=== PATIENT | male | born 1970 ===

== ENCOUNTER 2018-05-15 16:37 | Emergency (ER) | payer MEDICAID, OTHER ==
[2018-05-15 16:55] VITALS: RESP 18; TEMP 98.3
[2018-05-15] MEDS ORDERED: Naproxen 500 MG TAB PO STA (17:07)
--- NOTE | 2018-05-15 17:11 | ED PDOC ---
HPI: Head Injury Time Seen by Provider: 05/15/18 17:08 Chief Complaint (Nursing): Headache Chief Complaint (Provider): head injury/jaw injury History Per: Patient (47 y/o male here with facial/head injury that occurred 2 weeks ago when he fell out of bed and hit face along brick wall. Was disoriented after injury but states no LOC/altered mentation noted. Patient has h/o cervical fusion and has been taking advil intermittently for pain. Patient notes persistent symptoms and is here to evaluate for fx/head injury.) Past Medical History Reviewed: Historical Data, Nursing Documentation, Vital Signs Vital Signs: Last Vital Signs Temp 98.3 F 05/15/18 16:51 Pulse 106 H 05/15/18 16:51 Resp 18 05/15/18 16:51 BP 146/79 05/15/18 16:51 Pulse Ox 97 05/15/18 16:51 - Medical History PMH: Asthma - Surgical History Surgical History: Tonsillectomy - Family History Family History: States: Unknown Family Hx - Home Medications Home Medications: Ambulatory Orders Medication Instructions Recorded Azithromycin [Zithromax Z-Patricio] 250 mg PO DAILY #1 packet 10/31/14 Prednisone 50 mg PO DAILY #5 tab 10/31/14 guaiFENesin/Codeine [Robitussin 5 ml PO Q4H PRN #240 ml 10/31/14 w/Codeine] Methylprednisolone [Medrol Dose 4 mg PO DAILY #21 mg 08/04/16 Pack (21 tabs)] Promethazine HCl/Codeine 5 ml PO HS #80 ml 08/04/16 [Prometh-Codein 6.25-10 mg/5 ml] Naproxen 1 tab PO Q12 PRN #14 tab 05/15/18 - Allergies Allergies/Adverse Reactions: Allergies Allergy/AdvReac Type Severity Reaction Status Date / Time No Known Allergies Allergy Verified 08/04/16 14:22 Review of Systems ROS Statement: Except As Marked, All Systems Reviewed And Found Negative Neurological: Positive for: Other (head injury) Physical Exam - Reviewed Nursing Documentation Reviewed: Yes Vital Signs Reviewed: Yes - Physical Exam Appears: Positive for: Well, Non-toxic, No Acute Distress Head Exam: Positive for: ATRAUMATIC (no obvious abrasion noted. tender superior aspect of head. ), NORMAL INSPECTION, NORMOCEPHALIC Skin: Positive for: Normal Color, Warm, DRY Eye Exam: Positive for: EOMI, Normal appearance, PERRL ENT: Positive for: Normal ENT Inspection (tender opening and close jaw) Neck: Positive for: Normal, Painless ROM Cardiovascular/Chest: Positive for: Regular Rate, Rhythm Respiratory: Positive for: CNT, Normal Breath Sounds Gastrointestinal/Abdominal: Positive for: Normal Exam, Soft Back: Positive for: Normal Inspection Extremity: Positive for: Normal ROM Neurologic/Psych: Positive for: Alert, Oriented - ECG O2 Sat by Pulse Oximetry: 97 - Progress ED Course And Treament: CT C SPINE: IMPRESSION: Fragmentation of the tip of the dens without surrounding edema, hemorrhage or widening of the predental space. Sclerotic appearance of the body of the dens and anterior arch of C1. These findings suggest chronicity. If there is clinical concern for acute fracture, MRI can be obtained for further evaluation. CT HEAD: NAD CT ORBITAL-FACIAL NO FX NAPROXEN 500MG X 1 DOSE MORPHINE 4 MG IM X 1 DOSE PATIENT RE-EXAMINED WITH NO POINT TENDERNESS BY NECK. PAIN MOSTLY ON RIGHT JAW. Disposition - Clinical Impression Clinical Impression: Head injury, Dens fracture - Patient ED Disposition Is Patient to be Admitted: No - Disposition Referrals: Ozzie Petit MD [Staff Provider] - Disposition: Routine/Home Disposition Time: 18:39 Condition: FAIR Prescriptions: Naproxen 1 tab PO Q12 PRN #14 tab PRN Reason: Pain, Moderate (4-7) Instructions: Neck Fracture, Closed Head Injury (DC) Forms: [facility] ED School/Work Excuse
[2018-05-15] MEDS ORDERED: Naproxen 500 MG TAB PO ONE (17:20)
--- NOTE | 2018-05-15 17:46 | CT ---
Date of service: 05/15/2018 PROCEDURE: CT HEAD WITHOUT CONTRAST. HISTORY: head injury/headache COMPARISON: None available. TECHNIQUE: Axial computed tomography images were obtained through the head/brain without intravenous contrast. Radiation dose: Total exam DLP = 856.5 mGy-cm. This CT exam was performed using one or more of the following dose reduction techniques: Automated exposure control, adjustment of the mA and/or kV according to patient size, and/or use of iterative reconstruction technique. FINDINGS: HEMORRHAGE: No intracranial hemorrhage. BRAIN: No mass effect or edema. No atrophy or chronic microvascular ischemic changes. VENTRICLES: Unremarkable. No hydrocephalus. CALVARIUM: Unremarkable. PARANASAL SINUSES: Unremarkable as visualized. No significant inflammatory changes. MASTOID AIR CELLS: Unremarkable as visualized. No inflammatory changes. OTHER FINDINGS: None. IMPRESSION: No acute intracranial pathology.
--- NOTE | 2018-05-15 18:02 | CT ---
Date of service: 05/15/2018 PROCEDURE: CT MAXILLOFACIAL BONES WITHOUT CONTRAST HISTORY: r/o fx COMPARISON: None available. TECHNIQUE: Contiguous axial CT images of the maxillofacial bones were obtained. Coronal and sagittal reformats were generated. Radiation dose: Total exam DLP = 769.2 mGy-cm. This CT exam was performed using one or more of the following dose reduction techniques: Automated exposure control, adjustment of the mA and/or kV according to patient size, and/or use of iterative reconstruction technique. FINDINGS: NASAL BONES: Unremarkable. ORBITS: Unremarkable. PARANASAL SINUSES/ MASTOIDS: Clear. MAXILLA: Unremarkable. MANDIBLE/ TEMPOROMANDIBULAR JOINTS: Unremarkable. SKULL BASE: Unremarkable. TEMPORAL BONES: Middle ears and mastoid grossly unremarkable. OTHER FINDINGS: None. IMPRESSION: Unremarkable non contrast enhanced CT of the maxillofacial bones.
--- NOTE | 2018-05-15 18:08 | CT ---
Date of service: 05/15/2018 PROCEDURE: CT Cervical Spine without contrast HISTORY: neck injury COMPARISON: 451.8 TECHNIQUE: Axial computed tomography images were obtained of the cervical spine without the use of intravenous contrast. Coronal and sagittal reformatted images were created and reviewed. Radiation dose: Total exam DLP = 451.8 mGy-cm. This CT exam was performed using one or more of the following dose reduction techniques: Automated exposure control, adjustment of the mA and/or kV according to patient size, and/or use of iterative reconstruction technique. FINDINGS: VERTEBRAE: Reversal of the normal cervical lordosis. Fragmentation of the tip of the dens without obvious surrounding edema, hemorrhage or widening of the predental space. Sclerotic appearance of the body of the dens and anterior arch of C1. Normal alignment. No destructive bony lesion. DISCS/SPINAL CANAL/NEURAL FORAMINA: No significant central canal or neural foraminal stenosis. Discs heights are grossly preserved. PARASPINAL SOFT TISSUES: Unremarkable. OTHER FINDINGS: None. IMPRESSION: Fragmentation of the tip of the dens without surrounding edema, hemorrhage or widening of the predental space. Sclerotic appearance of the body of the dens and anterior arch of C1. These findings suggest chronicity. If there is clinical concern for acute fracture, MRI can be obtained for further evaluation.
[2018-05-15] MEDS ORDERED: Morphine 4 MG/ML VIAL ONE (19:04)
[2018-05-15 19:40] VITALS: BP 119/75; PULSE 87; O2SAT 92
== END 2018-05-15 19:40 | disposition home or self-care (01) ==
LOC: H.ER 16:37
DX: S09.90XA Unspecified injury of head, initial encounter (principal); S12.110A Anterior displaced Type II dens fracture, initial encounter for closed fracture; W06.XXXA Fall from bed, initial encounter; J45.909 Unspecified asthma, uncomplicated
CPT/HCPCS: 70450; 70486; 72125; 96372; 99285; J2270

== ENCOUNTER 2018-09-08 18:43 | Inpatient (IN) | payer MEDICAID ==
[2018-09-08] MEDS ORDERED: Albuterol-Ipratrop 3 mg / 0.5 (3 ml) UD IH STA ×2 (19:04→20:35)
--- NOTE | 2018-09-08 19:09 | ED PDOC ---
HPI: CCC, URI, Sore Throat Time Seen by Provider: 09/08/18 18:59 Chief Complaint (Nursing): Cough, Cold, Congestion History Per: Patient Onset/Duration Of Symptoms: Days (3) Current Symptoms Are (Timing): Still Present Associated Symptoms: Cough. denies: Fever Severity: Moderate Additional Complaint(s): Cough productive white sputum assoc with wheezing and SOB x 3 days. Denies fever. Seen [facility] [place] 2 days ago but persists with above sxs. Past Medical History Vital Signs: Last Vital Signs Temp 98.2 F 09/08/18 18:48 Pulse 109 H 09/08/18 18:48 Resp 21 09/08/18 18:48 BP 149/68 09/08/18 18:48 Pulse Ox 96 09/08/18 18:48 - Medical History PMH: Asthma, Back Problems, Rheumatoid Arthritis Denies: Chronic Kidney Disease - Surgical History Surgical History: Back Surgery, Tonsillectomy - Family History Family History: States: Unknown Family Hx - Immunization History Hx Influenza Vaccination: Yes - Home Medications Home Medications: Ambulatory Orders Medication Instructions Recorded Azithromycin [Zithromax Z-Patricio] 250 mg PO DAILY #1 packet 10/31/14 Prednisone 50 mg PO DAILY #5 tab 10/31/14 guaiFENesin/Codeine [Robitussin 5 ml PO Q4H PRN #240 ml 10/31/14 w/Codeine] Methylprednisolone [Medrol Dose 4 mg PO DAILY #21 mg 08/04/16 Pack (21 tabs)] Promethazine HCl/Codeine 5 ml PO HS #80 ml 08/04/16 [Prometh-Codein 6.25-10 mg/5 ml] Naproxen 1 tab PO Q12 PRN #14 tab 05/15/18 diaZEpam [Valium] 5 mg PO Q6 PRN #8 tab 05/15/18 oxyCODONE/Acetaminophen [Percocet 1 ea PO Q6 PRN #12 tab 05/15/18 5/325 mg Tab] - Allergies Allergies/Adverse Reactions: Allergies Allergy/AdvReac Type Severity Reaction Status Date / Time No Known Allergies Allergy Verified 09/08/18 18:52 Review of Systems ROS Statement: Except As Marked, All Systems Reviewed And Found Negative Constitutional: Negative for: Fever Respiratory: Positive for: Cough, Shortness of Breath, Wheezing Physical Exam - Reviewed Nursing Documentation Reviewed: Yes Vital Signs Reviewed: Yes - Physical Exam Appears: Positive for: Non-toxic, No Acute Distress Head Exam: Positive for: ATRAUMATIC, NORMAL INSPECTION, NORMOCEPHALIC Skin: Positive for: Normal Color, Warm, DRY Eye Exam: Positive for: EOMI, Normal appearance, PERRL ENT: Positive for: Normal ENT Inspection Neck: Positive for: Normal, Painless ROM Cardiovascular/Chest: Positive for: Regular Rate, Rhythm Respiratory: Positive for: Rhonchi, Wheezing Gastrointestinal/Abdominal: Positive for: Normal Exam, Soft Back: Positive for: Normal Inspection Extremity: Positive for: Normal ROM Neurologic/Psych: Positive for: Alert, Oriented - Laboratory Results Result Diagrams: 09/08/18 19:38 09/08/18 19:38 - ECG O2 Sat by Pulse Oximetry: 96 Disposition - Clinical Impression Clinical Impression: Asthmatic bronchitis, Failure of outpatient treatment - Patient ED Disposition Is Patient to be Admitted: Yes - Disposition Disposition Time: 20:36 Condition: FAIR Forms: [facility] ([place]) - Pt Status Changed To: Hospital Disposition Of: Observation - POA Present On Arrival: None
[2018-09-08] MEDS ORDERED: Albuterol-Ipratrop 3 mg / 0.5 (3 ml) UD ONE ×2 (19:11→22:58)
[2018-09-08] MEDS: Albuterol-Ipratrop 3 mg / 0.5 (3 ml) UD IH STA ×2 (19:19→19:36)
[2018-09-08 20:18] LABS: BASO # 0.1 K/uL (0.0-0.2); BASO % 0.5 % (0.0-2.0); EOS % 0.2 % (0.0-4.0); HEMOGLOBIN 14.7 g/dL (12.0-18.0); LYMPH # 1.9 K/uL (1.0-4.3); LYMPH % 14.2 % (20.0-40.0); MEAN CELL VOLUME 95.7 fl (80.0-94.0); MEAN CORPUSCULAR HEMOGLOBIN 30.9 pg (27.0-31.0); MEAN CORPUSCULAR HGB CONC 32.3 g/dL (33.0-37.0); MEAN PLATELET VOLUME 9.4 fl (7.2-11.7); MONO % 7.7 % (0.0-10.0); NEUT # 10.3 K/uL (1.8-7.0); NEUT % 77.4 % (50.0-75.0); NRBC % 0.1 % (0.0-0.0); RBC 4.76 Mil/uL (4.40-5.90); RED CELL DISTRIBUTION WIDTH 14.2 % (11.5-14.5); WHITE BLOOD COUNT 13.3 K/uL (4.8-10.8)
[2018-09-08 20:27] LABS: ALB/GLOB RATIO 1.1 (1.0-2.1); ALBUMIN 4.1 g/dL (3.5-5.0); ALT/SGPT 70 U/L (21-72); AST/SGOT 41 U/L (17-59); BLOOD UREA NITROGEN 31 mg/dl (9-20); CALCIUM 9.2 mg/dL (8.4-10.2); GFR NON-AFRICAN AMERICAN > 60
[2018-09-08] MEDS ORDERED: methylPREDNISolone 40 MG in Sodium Chloride 0.9% 50 ML IVPB SCH (21:00)
[2018-09-08] MEDS ORDERED: MethylPREDNISolone 40 mg Vial IVP STA (21:06)
--- NOTE | 2018-09-08 21:16 | CP.PCM.HP ---
History of Present Illness - History of Present Illness History of Present Illness: pt admitted asthma/bronchits. was in [facility] [place] same. spo2 [id number] has ho herson non compliant on therapy bw and imaging reviewed. Present on Admission - Present on Admission Any Indicators Present on Admission: No Review of Systems - Respiratory Respiratory: As Per HPI, Dyspnea, Chest Congestion Past Patient History - Past Social History Smoking Status: Never Smoked - CARDIAC Hx Cardiac Disorders: No - PULMONARY Hx Asthma: Yes - NEUROLOGICAL Hx Neurological Disorder: No - HEENT Hx HEENT Problems: No - RENAL Hx Chronic Kidney Disease: No - ENDOCRINE/METABOLIC Hx Endocrine Disorders: No - HEMATOLOGICAL/ONCOLOGICAL Hx Blood Disorders: No - MUSCULOSKELETAL/RHEUMATOLOGICAL Hx Rheumatoid Arthritis: Yes - PSYCHIATRIC Hx Psychophysiologic Disorder: No Hx Substance Use: No - SURGICAL HISTORY Hx Tonsillectomy: Yes - ANESTHESIA Hx Anesthesia: Yes Hx Anesthesia Reactions: No Meds Home Medications: Home Medication List Medication Instructions Recorded Confirmed Type Amoxicillin/Clavulanate [Augmentin 1 tab PO BID #10 tab 09/11/18 Rx 875 MG-125 MG] RX: Levalbuterol [Xopenex] 0.63 mg INH RQ4 #100 neb 09/11/18 Rx RX: Promethazine DM [Phenergan DM 10 ml PO Q6 PRN #250 ml 09/11/18 Rx Syrup] predniSONE [Prednisone] 10 mg PO DAILY #21 tab 09/11/18 Rx Allergies/Adverse Reactions: Allergies Allergy/AdvReac Type Severity Reaction Status Date / Time No Known Allergies Allergy Verified 09/08/18 18:52 Physical Exam - Constitutional Appears: Well, Non-toxic, No Acute Distress - Head Exam Head Exam: ATRAUMATIC, NORMAL INSPECTION, NORMOCEPHALIC - Eye Exam Eye Exam: EOMI, Normal appearance, PERRL Pupil Exam: NORMAL ACCOMODATION, PERRL - ENT Exam ENT Exam: Mucous Membranes Moist, Normal Exam - Neck Exam Neck exam: Positive for: Normal Inspection - Respiratory Exam Respiratory Exam: Clear to Auscultation Bilateral, NORMAL BREATHING PATTERN - Cardiovascular Exam Cardiovascular Exam: REGULAR RHYTHM, RRR, +S1, +S2 - GI/Abdominal Exam GI & Abdominal Exam: Normal Bowel Sounds, Soft. absent: Tenderness - Extremities Exam Extremities exam: Positive for: normal inspection - Back Exam Back exam: NORMAL INSPECTION - Neurological Exam Neurological exam: Alert, CN II-XII Intact, Normal Gait, Oriented x3, Reflexes Normal - Psychiatric Exam Psychiatric exam: Normal Affect, Normal Mood - Skin Skin Exam: Dry, Intact, Normal Color, Warm Results - Vital Signs Recent Vital Signs: Last Vital Signs Temp 98.2 F 09/08/18 18:48 Pulse 109 H 09/08/18 18:48 Resp 21 09/08/18 18:48 BP 149/68 09/08/18 18:48 Pulse Ox 96 09/08/18 20:36 - Labs Result Diagrams: 09/11/18 05:25 09/11/18 05:25 Labs: Laboratory Results - last 24 hr 09/08/18 09/08/18 09/08/18 19:38 19:38 19:38 WBC 13.3 H RBC 4.76 Hgb 14.7 Hct 45.5 MCV 95.7 H MCH 30.9 MCHC 32.3 L RDW 14.2 Plt Count 286 MPV 9.4 Neut % (Auto) 77.4 H Lymph % (Auto) 14.2 L [place] % (Auto) 7.7 Eos % (Auto) 0.2 Baso % (Auto) 0.5 Neut # (Auto) 10.3 H Lymph # (Auto) 1.9 [place] # (Auto) 1.0 H Eos # (Auto) 0.0 Baso # (Auto) 0.1 Sodium 139 Potassium 3.7 Chloride 100 Carbon Dioxide 30 Anion Gap 13 BUN 31 H Creatinine 0.9 Est GFR ( Amer) > 60 Est GFR (Non-Af Amer) > 60 Random Glucose 113 H Calcium 9.2 Total Bilirubin 0.3 AST 41 ALT 70 Alkaline Phosphatase 94 Total Protein 7.8 Albumin 4.1 Globulin 3.7 Albumin/Globulin Ratio 1.1 Influenza Typ A,B (EIA) Negative for flu a/b Assessment & Plan (1) Asthmatic bronchitis Assessment and Plan: steroids, duonebs, anbx Status: Acute (2) DVT prophylaxis Assessment and Plan: scd nad ae hose ambulation Status: Acute (3) HERSON (obstructive sleep apnea) Assessment and Plan: outpt ent Status: Acute Decision To Admit - Pt Status Changed To: Hospital Disposition Of: Inpatient - Admit Certification Admit to Inpatient:: After my assessment, the patient will require hospitali zation for at least two midnights. This is because of the severity of symptoms shown, intensity of services needed, and/or the medical risk in this patient being treated as an outpatient. - . Bed Request Type: Med/Surg
[2018-09-08] MEDS ORDERED: MethylPREDNISolone 40 mg Vial ONE (22:59)
[2018-09-08] MEDS: MethylPREDNISolone 40 mg Vial IVP SCH (23:02)
[2018-09-08] MEDS: Promethazine DM 12.5 mg-30 mg/10 ml Syrup PO PRN (23:34)
[2018-09-08] MEDS: guaiFENesin 600 mg ER Tab PO SCH (23:35)
[2018-09-09] MEDS ORDERED: Albuterol-Ipratrop 3 mg / 0.5 (3 ml) UD INH STA (04:53)
[2018-09-09] MEDS: Promethazine DM 12.5 mg-30 mg/10 ml Syrup PO PRN ×2 (05:00→13:16)
[2018-09-09 07:33] LABS: BASO % 0.3 % (0.0-2.0); LYMPH # 0.9 K/uL (1.0-4.3); MEAN CELL VOLUME 94.3 fl (80.0-94.0); MEAN CORPUSCULAR HEMOGLOBIN 31.2 pg (27.0-31.0); MEAN PLATELET VOLUME 8.8 fl (7.2-11.7); MONO # 0.3 K/uL (0.0-0.8); MONO % 2.7 % (0.0-10.0); NEUT # 8.4 K/uL (1.8-7.0); PLATELET COUNT 275 K/uL (130-400); RBC 4.81 Mil/uL (4.40-5.90); RED CELL DISTRIBUTION WIDTH 14.3 % (11.5-14.5); WHITE BLOOD COUNT 9.5 K/uL (4.8-10.8)
[2018-09-09] MEDS: Albuterol-Ipratrop 3 mg / 0.5 (3 ml) UD INH SCH ×3 (07:52→15:42)
[2018-09-09 07:55] LABS: ALB/GLOB RATIO 1.2 (1.0-2.1); ALBUMIN 4.5 g/dL (3.5-5.0); ALT/SGPT 70 U/L (21-72); AST/SGOT 36 U/L (17-59); BLOOD UREA NITROGEN 22 mg/dl (9-20); CALCIUM 9.5 mg/dL (8.4-10.2); GFR NON-AFRICAN AMERICAN > 60
--- NOTE | 2018-09-09 08:56 | RAD ---
Date of service: 09/08/2018 HISTORY: SOB COMPARISON: Chest radiograph dated 08/04/2016. TECHNIQUE: Chest PA and lateral FINDINGS: LUNGS: Patchy lingular infiltrate. PLEURA: No significant pleural effusion identified. No pneumothorax apparent. CARDIOVASCULAR: No aortic atherosclerotic calcification present. Cardiomediastinal silhouette stably enlarged. OSSEOUS STRUCTURES: Unchanged. VISUALIZED UPPER ABDOMEN: Normal. OTHER FINDINGS: None. IMPRESSION: Patchy lingular infiltrate.
--- NOTE | 2018-09-09 09:05 | CP.PCM.PN ---
Subjective - Date & Time of Evaluation Date of Evaluation: 09/09/18 Time of Evaluation: 09:03 - Subjective Subjective: pt doing well. admitted for bronchitis. still on o2 bt feels better. pt has h/o goran but not using cpap. oropharynx swollen w/ very decr size of airway. pt admited to sleeping in chair x 10-15 yrs. Objective - Vital Signs/Intake and Output Vital Signs (last 24 hours): Temp Pulse Resp BP Pulse Ox 97.6 F 91 H 20 145/90 94 L 09/09/18 07:52 09/09/18 07:52 09/09/18 07:52 09/09/18 07:52 09/09/18 07:52 - Medications Medications: Current Medications Albuterol/Ipratropium (Duoneb 3 Mg/0.5 Mg (3 Ml) Ud) 3 ml INH RQID ROSA Last Admin: 09/09/18 07:52 Dose: 3 ml Guaifenesin (Mucinex La) 1,200 mg PO Q12 ROSA Last Admin: 09/08/18 23:35 Dose: 1,200 mg Ceftriaxone Sodium 1 gm/ (Sodium Chloride) 100 mls @ 100 mls/hr IVPB DAILY ROSA; Protocol Methylprednisolone (Solu-Medrol) 40 mg IVP Q12H ROSA Last Admin: 09/08/18 23:02 Dose: 40 mg Promethazine HCl/Dextromethorphan (Phenergan Dm Syrup) 10 ml PO Q6 PRN PRN Reason: Cough Last Admin: 09/09/18 05:00 Dose: 10 ml - Labs Labs: 09/09/18 06:15 09/09/18 06:15 - Constitutional Appears: Well, Non-toxic, No Acute Distress - Head Exam Head Exam: ATRAUMATIC, NORMAL INSPECTION, NORMOCEPHALIC - Eye Exam Eye Exam: EOMI, Normal appearance, PERRL Pupil Exam: NORMAL ACCOMODATION, PERRL - ENT Exam ENT Exam: Mucous Membranes Moist, Normal Exam Additional comments: oropharynx swollen, decr airways - Neck Exam Neck Exam: Full ROM, Normal Inspection. absent: Lymphadenopathy - Respiratory Exam Respiratory Exam: Clear to Ausculation Bilateral, NORMAL BREATHING PATTERN - Cardiovascular Exam Cardiovascular Exam: REGULAR RHYTHM, RRR, +S1, +S2. absent: Murmur - GI/Abdominal Exam GI & Abdominal Exam: Soft, Normal Bowel Sounds. absent: Tenderness - Rectal Exam Rectal Exam: NORMAL INSPECTION - Extremities Exam Extremities Exam: Full ROM, Normal Capillary Refill, Normal Inspection. absent: Joint Swelling, Pedal Edema - Back Exam Back Exam: NORMAL INSPECTION - Neurological Exam Neurological Exam: Alert, Awake, CN II-XII Intact, Normal Gait, Oriented x3 - Psychiatric Exam Psychiatric exam: Normal Affect, Normal Mood - Skin Skin Exam: Dry, Intact, Normal Color, Warm Assessment and Plan (1) DVT prophylaxis Assessment & Plan: scd and ae hose ambulation Status: Acute (2) GORAN (obstructive sleep apnea) Assessment & Plan: outpt sleep and ent consult Status: Acute (3) Asthmatic bronchitis Assessment & Plan: rocephin, solumedrol, o2 prn, duonebs, mucinex phenergen cxr noted dc is tolerant off o2 Status: Acute
[2018-09-09] MEDS: guaiFENesin 600 mg ER Tab PO SCH ×2 (09:30→21:17)
[2018-09-09] MEDS: MethylPREDNISolone 40 mg Vial IVP SCH ×2 (09:30→21:17)
[2018-09-09 12:21] LABS: BANDS 3 % (0-2); LYMPHOCYTE 7 % (20-50); MONOCYTE 5 % (0-10); MYELOCYTE 1 % (0-0); NEUTROPHIL 84 % (42-75); PLATELET ESTIMATE NORMAL (NORMAL); TOTAL CELLS COUNTED 100
--- NOTE | 2018-09-09 13:09 | CARD ---
APPROVED REPORT Date of service: 09/08/2018 EKG Measurement Heart [id number] <Conclusion> Sinus tachycardia Nonspecific T wave abnormality Abnormal ECG
[2018-09-09] MEDS: Levalbuterol 0.63 MG/3 ML Inhal Soln UD INH SCH ×2 (19:01→22:59)
[2018-09-10] MEDS: Levalbuterol 0.63 MG/3 ML Inhal Soln UD INH SCH ×6 (04:29→23:31)
[2018-09-10 08:57] LABS: ABG ALLEN TEST YES; ARTERIAL BLOOD GAS HCO3 28.8 mmol/L (21-28); ARTERIAL BLOOD GAS HEMOGLOBIN 16.1 g/dL (11.7-17.4); ARTERIAL BLOOD GAS O2 CONTENT 20.9 ML/dL (15-23); ARTERIAL BLOOD GAS O2 SAT 94.8 % (95-98); ARTERIAL BLOOD GAS PCO2 56 mm/Hg (35-45); ARTERIAL BLOOD GAS PH 7.37 (7.35-7.45); ARTERIAL BLOOD GAS PO2 66 mm/Hg (80-100); ARTERIAL BLOOD GAS TCO2 34.1 mmol/L (22-28)
[2018-09-10] MEDS: guaiFENesin 600 mg ER Tab PO SCH ×2 (09:30→21:21)
[2018-09-10] MEDS: MethylPREDNISolone 40 mg Vial IVP SCH ×2 (09:31→21:21)
[2018-09-10 09:32] LABS: HEMOGLOBIN 15.4 g/dL (12.0-18.0); MEAN CELL VOLUME 95.1 fl (80.0-94.0); MEAN CORPUSCULAR HEMOGLOBIN 30.9 pg (27.0-31.0); MEAN CORPUSCULAR HGB CONC 32.5 g/dL (33.0-37.0); RBC 4.97 Mil/uL (4.40-5.90); RED CELL DISTRIBUTION WIDTH 14.7 % (11.5-14.5); WHITE BLOOD COUNT 13.8 K/uL (4.8-10.8)
[2018-09-10 09:39] LABS: ALB/GLOB RATIO 1.1 (1.0-2.1); ALBUMIN 4.3 g/dL (3.5-5.0); ALT/SGPT 65 U/L (21-72); AST/SGOT 33 U/L (17-59); BLOOD UREA NITROGEN 22 mg/dl (9-20); CALCIUM 9.2 mg/dL (8.4-10.2); GFR NON-AFRICAN AMERICAN > 60
--- NOTE | 2018-09-10 18:24 | CP.PCM.PN ---
Subjective - Date & Time of Evaluation Date of Evaluation: 09/10/18 Time of Evaluation: 18:23 - Subjective Subjective: pt doing well no fcnvd still woth sob and mild sob onexertion bw noted abd noted Objective - Vital Signs/Intake and Output Vital Signs (last 24 hours): Temp Pulse Resp BP Pulse Ox 97.8 F 91 H 17 156/98 H 95 09/10/18 15:52 09/10/18 15:52 09/10/18 15:52 09/10/18 15:52 09/10/18 15:52 - Medications Medications: Current Medications Guaifenesin (Mucinex La) 1,200 mg PO Q12 ROSA Last Admin: 09/10/18 09:30 Dose: 1,200 mg Ceftriaxone Sodium 1 gm/ (Sodium Chloride) 100 mls @ 100 mls/hr IVPB DAILY ROSA; Protocol Last Admin: 09/10/18 09:32 Dose: 100 mls/hr Levalbuterol HCl (Xopenex) 0.63 mg INH RQ4 ROSA Last Admin: 09/10/18 15:54 Dose: 0.63 mg Methylprednisolone (Solu-Medrol) 40 mg IVP Q12H ROSA Last Admin: 09/10/18 09:31 Dose: 40 mg Promethazine HCl/Dextromethorphan (Phenergan Dm Syrup) 10 ml PO Q6 PRN PRN Reason: Cough Last Admin: 09/09/18 13:16 Dose: 10 ml Zolpidem Tartrate (Ambien) 5 mg PO HS PRN PRN Reason: Insomnia Last Admin: 09/09/18 21:17 Dose: 5 mg - Labs Labs: 09/10/18 09:10 09/10/18 09:10
[2018-09-11 00:18] VITALS: RESP 20
[2018-09-11] MEDS: Levalbuterol 0.63 MG/3 ML Inhal Soln UD INH SCH ×4 (04:10→14:59)
[2018-09-11 05:54] LABS: BASO % 0.2 % (0.0-2.0); HEMOGLOBIN 15.3 g/dL (12.0-18.0); LYMPH % 7.7 % (20.0-40.0); MEAN CELL VOLUME 95.6 fl (80.0-94.0); MEAN CORPUSCULAR HGB CONC 32.4 g/dL (33.0-37.0); MEAN PLATELET VOLUME 8.9 fl (7.2-11.7); MONO # 0.5 K/uL (0.0-0.8); MONO % 3.7 % (0.0-10.0); NEUT # 11.7 K/uL (1.8-7.0); NEUT % 88.4 % (50.0-75.0); NRBC % 0.1 % (0.0-0.0); RBC 4.95 Mil/uL (4.40-5.90); RED CELL DISTRIBUTION WIDTH 14.9 % (11.5-14.5); WHITE BLOOD COUNT 13.3 K/uL (4.8-10.8)
[2018-09-11 06:17] LABS: ALB/GLOB RATIO 1.1 (1.0-2.1); ALBUMIN 4.3 g/dL (3.5-5.0); ALT/SGPT 59 U/L (21-72); AST/SGOT 35 U/L (17-59); BLOOD UREA NITROGEN 21 mg/dl (9-20); CALCIUM 8.9 mg/dL (8.4-10.2); GFR NON-AFRICAN AMERICAN > 60
[2018-09-11 07:49] VITALS: O2SAT 92
--- NOTE | 2018-09-11 08:02 | CP.PCM.PN ---
Subjective - Date & Time of Evaluation Date of Evaluation: 09/11/18 Time of Evaluation: 08:01 - Subjective Subjective: pt doing well. off o2. no f/c, n/v/d. no sob. no cough at present. pt states is feeling better. Objective - Vital Signs/Intake and Output Vital Signs (last 24 hours): Temp Pulse Resp BP Pulse Ox 98.4 F 84 20 106/53 L 92 L 09/11/18 07:49 09/11/18 07:49 09/11/18 07:49 09/11/18 07:49 09/11/18 07:49 - Medications Medications: Current Medications Guaifenesin (Mucinex La) 1,200 mg PO Q12 ROSA Last Admin: 09/10/18 21:21 Dose: 1,200 mg Ceftriaxone Sodium 1 gm/ (Sodium Chloride) 100 mls @ 100 mls/hr IVPB DAILY ROSA; Protocol Last Admin: 09/10/18 09:32 Dose: 100 mls/hr Levalbuterol HCl (Xopenex) 0.63 mg INH RQ4 ROSA Last Admin: 09/11/18 07:32 Dose: 0.63 mg Methylprednisolone (Solu-Medrol) 40 mg IVP Q12H ROSA Last Admin: 09/10/18 21:21 Dose: 40 mg Promethazine HCl/Dextromethorphan (Phenergan Dm Syrup) 10 ml PO Q6 PRN PRN Reason: Cough Last Admin: 09/09/18 13:16 Dose: 10 ml Zolpidem Tartrate (Ambien) 5 mg PO HS PRN PRN Reason: Insomnia Last Admin: 09/09/18 21:17 Dose: 5 mg - Labs Labs: 09/11/18 05:25 09/11/18 05:25 - Constitutional Appears: Well, Non-toxic, No Acute Distress - Head Exam Head Exam: ATRAUMATIC, NORMAL INSPECTION, NORMOCEPHALIC - Eye Exam Eye Exam: EOMI, Normal appearance, PERRL Pupil Exam: NORMAL ACCOMODATION, PERRL - ENT Exam ENT Exam: Mucous Membranes Moist, Normal Exam - Neck Exam Neck Exam: Full ROM, Normal Inspection. absent: Lymphadenopathy - Respiratory Exam Respiratory Exam: Clear to Ausculation Bilateral, NORMAL BREATHING PATTERN - Cardiovascular Exam Cardiovascular Exam: REGULAR RHYTHM, RRR, +S1, +S2. absent: Murmur - GI/Abdominal Exam GI & Abdominal Exam: Soft, Normal Bowel Sounds. absent: Tenderness - Extremities Exam Extremities Exam: Full ROM, Normal Capillary Refill, Normal Inspection. absent: Joint Swelling, Pedal Edema - Back Exam Back Exam: NORMAL INSPECTION - Neurological Exam Neurological Exam: Alert, Awake, CN II-XII Intact, Normal Gait, Oriented x3 - Psychiatric Exam Psychiatric exam: Normal Affect, Normal Mood - Skin Skin Exam: Dry, Intact, Normal Color, Warm Assessment and Plan (1) DVT prophylaxis Assessment & Plan: scd and ae hose ambulation Status: Acute (2) GORAN (obstructive sleep apnea) Assessment & Plan: outpt ent/sleep eval Status: Acute (3) Asthmatic bronchitis Assessment & Plan: cont meds-rocephin, steroids-titrate likely dc today Status: Acute
[2018-09-11] MEDS: guaiFENesin 600 mg ER Tab PO SCH (08:24)
[2018-09-11] MEDS: MethylPREDNISolone 40 mg Vial IVP SCH (08:25)
[2018-09-11] MEDS: Promethazine DM 12.5 mg-30 mg/10 ml Syrup PO PRN (11:20)
[2018-09-11 12:46] VITALS: BP 161/95; PULSE 90; TEMP 97.8
--- NOTE | 2018-09-12 13:53 | PQF ---
PROVIDER RESPONSE TEXT: Asthma mild int, w/ exacerbation REVIEWER QUERY TEXT: Asthma Specificity and Type Asthma is documented in the Medical Record. Please specify the type and severity of asthma and indic ate if this is associated with exacerbation or status asthmaticus. Such as: -- Mild intermittent -- Mild persistent -- Moderate persistent -- Severe persistent -- Other, please specify Admission to Inpatient order: Diagnoses include: COPD Exacerbation, Bronchitis, Failed outpt. treatm ent H and P: asthma/bronchits.was in [facility] [place] for same. spo2 [id number] has ho herson non compliant on therapy bw and imaging reviewed. 09/09 Progress note includes: (2) HERSON: outpt sleep and ent consult Status: Acute (3) Asthmatic bronchitis : rocephin, solumedrol, o2 prn, duonebs, mucinex phenergen cxr noted dc is tolerant off o2 Status: Acute The patient's Clinical Indicators include: --- Query created by: Meera Reddy on 09/12/2018 11:28 AM Electronically signed by: Tadeo Celestin APN 09/12/2018 1:50 PM
--- NOTE | 2018-09-12 13:53 | PQF ---
PROVIDER RESPONSE TEXT: Morbid obesity. Outpt f/u. ?? Bariatric surgery REVIEWER QUERY TEXT: Clarification of Clinical Diagnostic Findings Please clarify if you are in agreement with the BMI: 49.4 as listed in the EMR? OR: Disagree OR:Other explanation of clinical finding The patient's Clinical Indicators include: --- Query created by: Meera Reddy on 09/12/2018 12:10 PM Electronically signed by: Tadeo Celestin APN 09/12/2018 1:50 PM
--- NOTE | 2018-09-12 13:53 | PQF ---
PROVIDER RESPONSE TEXT: Chronic. unspecified REVIEWER QUERY TEXT: Rheumatoid Arthritis Specificity Rheumatoid arthritis is documented in the Medical Record. Please clarify the specific site and later ality. Please also specify any associated conditions Such as -- Bursitis -- Felty?s syndrome -- Juvenile (Please specify type) -- Myopathy -- Nodule -- Organ involvement (Please indicate organ involved and specific disorder) -- Polyneuropathy -- With Rheumatoid Factor -- Other, please specify H and P includes:Hx Rheumatoid Arthritis: Yes The patient's Clinical Indicators include: -- Query created by: Meera Reddy on 09/12/2018 11:33 AM Electronically signed by: Tadeo Celestin APN 09/12/2018 1:50 PM
--- NOTE | 2018-09-12 13:53 | PQF ---
PROVIDER RESPONSE TEXT: Morbid obestiy. Diet/exercise. Outpt f/u REVIEWER QUERY TEXT: Clarification of Clinical Diagnostic Findings Is there an associated diagnosis to go along with the BMI: 49.4?:-- if in agreement with the BMI OR: Disagree OR: Unable to determine Chart documentation includes: BMI:49.4 5ft 8 in The patient's Clinical Indicators include: ---- Query created by: Meera Reddy on 09/12/2018 12:14 PM Electronically signed by: Tadeo Celestin APN 09/12/2018 1:50 PM
--- NOTE | 2018-09-12 13:53 | PQF ---
PROVIDER RESPONSE TEXT: Copd acute on chronic. bronchitis REVIEWER QUERY TEXT: COPD Specificity COPD - Chronic Obstructive Pulmonary Disease is documented in the Medical Record. Please specify the associated condition (includes suspected or probable) versus Ruled out Such as: -- Stable -- Exacerbation - acute -- Lower respiratory infection - acute -- Other, please specify Admission to Inpatient order: Diagnoses include: COPD Exacerbation, Bronchitis, Failed outpt. treatm ent H and P: asthma/bronchits.[place] [facility] [place]. spo2 89-91 has ho herson non compliant on therapy bw and imaging reviewed. 09/09 Progress note includes: (2) HERSON: outpt sleep and ent consult Status: Acute (3) Asthmatic bronchitis : rocephin, solumedrol, o2 prn, duonebs, mucinex phenergen cxr noted dc is tolerant off o2 Status: Acute The patient's Clinical Indicators include: --- Query created by: Meera Reddy on 09/12/2018 11:30 AM Electronically signed by: Tadeo Celestin APN 09/12/2018 1:50 PM
--- NOTE | 2018-09-12 13:53 | PQF ---
PROVIDER RESPONSE TEXT: Bronchitis unspecified, bacterial REVIEWER QUERY TEXT: Bronchitis Specificity Bronchitis is documented in the medical record. Please specify the type of bronchitis such as: Acuity: -- Acute -- Acute on chronic -- Chronic -- Other (please specify in the medical record) -- Clinically unable to determine -- Unknown Admission to Inpatient order: Diagnoses include: COPD Exacerbation, Bronchitis, Failed outpt. treatm ent H and P: asthma/bronchits.was in [facility] [place] for same. spo2 89-91 has ho herson non compliant on therapy bw and imaging reviewed. 09/09 Progress note includes: (2) HERSON: outpt sleep and ent consult Status: Acute (3) Asthmatic bronchitis : rocephin, solumedrol, o2 prn, duonebs, mucinex phenergen cxr noted dc is tolerant off o2 Status: Acute The patient's Clinical Indicators include: -- Query created by: Meera Reddy on 09/12/2018 11:27 AM Electronically signed by: Tadoe Celestin APN 09/12/2018 1:50 PM
--- NOTE | 2018-09-13 08:33 | PQF ---
PROVIDER RESPONSE TEXT: Likely copd and asthma exacerbation from bronchitis REVIEWER QUERY TEXT: COPD Specificity Stable COPD versus COPD Exacerbation? ( COPD Acute on Chronic is documented on a query form for this encounter. ) -- Other, please specify The patient's Clinical Indicators include: ---- Query created by: Meera Reddy on 09/13/2018 8:24 AM Electronically signed by: Tadeo Celestin APN 09/13/2018 8:30 AM
--- NOTE | 2018-09-14 11:16 | CP.PCM.DIS ---
Provider - Provider Date of Admission: 09/10/18 12:04 Attending physician: Lisa Chapin MD Time Spent in preparation of Discharge (in minutes): 15 Diagnosis - Discharge Diagnosis (1) DVT prophylaxis Status: Acute (2) GORAN (obstructive sleep apnea) Status: Acute (3) Asthmatic bronchitis Status: Acute Hospital Course - Lab Results Lab Results: Most Recent Lab Values WBC 13.3 K/uL (4.8-10.8) H 09/11/18 05:25 RBC 4.95 Mil/uL (4.40-5.90) 09/11/18 05:25 Hgb 15.3 g/dL (12.0-18.0) 09/11/18 05:25 Hct 47.3 % (35.0-51.0) 09/11/18 05:25 MCV 95.6 fl (80.0-94.0) H 09/11/18 05:25 MCH 31.0 pg (27.0-31.0) 09/11/18 05:25 MCHC 32.4 g/dL (33.0-37.0) L 09/11/18 05:25 RDW 14.9 % (11.5-14.5) H 09/11/18 05:25 Plt Count 306 K/uL (130-400) 09/11/18 05:25 MPV 8.9 fl (7.2-11.7) 09/11/18 05:25 Neut % (Auto) 88.4 % (50.0-75.0) H 09/11/18 05:25 Lymph % (Auto) 7.7 % (20.0-40.0) L 09/11/18 05:25 Ponce % (Auto) 3.7 % (0.0-10.0) 09/11/18 05:25 Eos % (Auto) 0.0 % (0.0-4.0) 09/11/18 05:25 Baso % (Auto) 0.2 % (0.0-2.0) 09/11/18 05:25 Neut # (Auto) 11.7 K/uL (1.8-7.0) H 09/11/18 05:25 Lymph # (Auto) 1.0 K/uL (1.0-4.3) 09/11/18 05:25 Ponce # (Auto) 0.5 K/uL (0.0-0.8) 09/11/18 05:25 Eos # (Auto) 0.0 K/uL (0.0-0.7) 09/11/18 05:25 Baso # (Auto) 0.0 K/uL (0.0-0.2) 09/11/18 05:25 Neutrophils % (Manual) 84 % (42-75) H 09/09/18 06:15 Band Neutrophils % 3 % (0-2) H 09/09/18 06:15 Lymphocytes % (Manual) 7 % (20-50) L 09/09/18 06:15 Monocytes % (Manual) 5 % (0-10) 09/09/18 06:15 Myelocytes % 1 % (0-0) H 09/09/18 06:15 Platelet Estimate Normal (NORMAL) 09/09/18 06:15 RBC Morphology Normal (NORMAL) 09/09/18 06:15 pCO2 56 mm/Hg (35-45) H 09/10/18 08:44 pO2 66 mm/Hg (80-100) L 09/10/18 08:44 HCO3 28.8 mmol/L (21-28) H 09/10/18 08:44 ABG pH 7.37 (7.35-7.45) 09/10/18 08:44 ABG Total CO2 34.1 mmol/L (22-28) H 09/10/18 08:44 ABG O2 Saturation 94.8 % (95-98) L 09/10/18 08:44 ABG O2 Content 20.9 ML/dL (15-23) 09/10/18 08:44 ABG Base Excess 5.2 mmol/L (-2.0-3.0) H 09/10/18 08:44 ABG Hemoglobin 16.1 g/dL (11.7-17.4) 09/10/18 08:44 ABG Carboxyhemoglobin 1.6 % (0.5-1.5) H 09/10/18 08:44 POC ABG HHb (Measured) 5.1 % (0.0-5.0) H 09/10/18 08:44 ABG Methemoglobin 0.9 % (0.0-3.0) 09/10/18 08:44 ABG O2 Capacity 22.0 mL/dL (16-24) 09/10/18 08:44 Laith Test Yes 09/10/18 08:44 A-a O2 Difference 14.0 mm/Hg 09/10/18 08:44 Hgb O2 Saturation 92.4 % (95.0-98.0) L 09/10/18 08:44 FiO2 21.0 % 09/10/18 08:44 Sodium 138 mmol/l (132-148) 09/11/18 05:25 Potassium 4.7 MMOL/L (3.6-5.0) 09/11/18 05:25 Chloride 92 mmol/L (98-107) L 09/11/18 05:25 Carbon Dioxide 33 mmol/L (22-30) H 09/11/18 05:25 Anion Gap 18 (10-20) 09/11/18 05:25 BUN 21 mg/dl (9-20) H 09/11/18 05:25 Creatinine 0.7 mg/dl (0.8-1.5) L 09/11/18 05:25 Est GFR ( Amer) > 60 09/11/18 05:25 Est GFR (Non-Af Amer) > 60 09/11/18 05:25 Random Glucose 173 mg/dL (75-110) H 09/11/18 05:25 Lactic Acid 1.1 MMOL/L (0.7-2.1) 09/10/18 09:10 Calcium 8.9 mg/dL (8.4-10.2) 09/11/18 05:25 Total Bilirubin 0.6 mg/dl (0.2-1.3) 09/11/18 05:25 AST 35 U/L (17-59) 09/11/18 05:25 ALT 59 U/L (21-72) 09/11/18 05:25 Alkaline Phosphatase 106 U/L (38-126) 09/11/18 05:25 Total Protein 8.3 G/DL (6.3-8.2) H 09/11/18 05:25 Albumin 4.3 g/dL (3.5-5.0) 09/11/18 05:25 Globulin 4.1 gm/dL (2.2-3.9) H 09/11/18 05:25 Albumin/Globulin Ratio 1.1 (1.0-2.1) 09/11/18 05:25 Influenza Typ A,B (EIA) Negative for flu a/b (NEGATIVE) 09/08/18 19:38 - Hospital Course Hospital Course: anbx, resp tx, o2, Discharge Exam - Head Exam Head Exam: ATRAUMATIC, NORMAL INSPECTION, NORMOCEPHALIC Discharge Plan - Discharge Medications Prescriptions: Amoxicillin/Clavulanate [Augmentin 875 MG-125 MG] 1 tab PO BID #10 tab Levalbuterol [Xopenex] 0.63 mg INH RQ4 #100 neb predniSONE [Prednisone] 10 mg PO DAILY #21 tab Promethazine DM [Phenergan DM Syrup] 10 ml PO Q6 PRN #250 ml PRN Reason: Cough - Follow Up Plan Condition: FAIR Disposition: HOME/ ROUTINE Instructions: Asthma (DC) Additional Instructions: Follow up with Dr justa liriano in 2 days. Follow up with ENT. final dx asthma/copd exacerbation, bronchitis, hypoxemia
== END 2018-09-11 15:30 | disposition home or self-care (01) | DRG 88 ==
LOC: H.ER 18:43 → H.ERHOLD 20:33 → H.TEL 09-09 01:33 → OBSVTOIN 09-10 12:04
PROVIDERS: ADMIT Family Medicine; ATTEND Family Medicine
DX: J44.1 Chronic obstructive pulmonary disease with (acute) exacerbation (principal); J45.21 Mild intermittent asthma with (acute) exacerbation; J44.0 Chronic obstructive pulmonary disease with (acute) lower respiratory infection; G47.33 Obstructive sleep apnea (adult) (pediatric); Z91.19 Patient's noncompliance with other medical treatment and regimen; M06.9 Rheumatoid arthritis, unspecified; J20.9 Acute bronchitis, unspecified; E66.01 Morbid (severe) obesity due to excess calories; Z68.42 Body mass index [BMI] 45.0-49.9, adult

== ENCOUNTER 2018-09-29 13:32 | Emergency (ER) | payer MEDICAID ==
[2018-09-29] MEDS ORDERED: Albuterol-Ipratrop 3 mg / 0.5 (3 ml) UD IH STA ×3 (14:01→16:11)
--- NOTE | 2018-09-29 14:06 | ED PDOC ---
HPI: SOB/CHF/COPD Time Seen by Provider: 09/29/18 13:55 Chief Complaint (Nursing): Shortness Of Breath Chief Complaint (Provider): Shortness Of Breath History Per: Patient History/Exam Limitations: no limitations Onset/Duration Of Symptoms: Days (x2) Associated Symptoms: Productive Cough Additional Complaint(s): 47 years old male with history of asthma presents to ER for evaluation of shortness of breath, wheezing and productive cough for two days. Patient reports using inhalers and prednisone at home with no improvement. PMD: Reji Greene Past Medical History Reviewed: Historical Data, Nursing Documentation, Vital Signs - Medical History PMH: Asthma, Back Problems, Rheumatoid Arthritis Denies: HIV, Chronic Kidney Disease - Surgical History Surgical History: Back Surgery, Tonsillectomy - Family History Family History: States: Unknown Family Hx - Immunization History Hx Influenza Vaccination: Yes - Home Medications Home Medications: Ambulatory Orders Medication Instructions Recorded Azithromycin [Zithromax] 250 mg PO DAILY #1 packet 10/31/14 Prednisone 50 mg PO DAILY #5 tab 10/31/14 Methylprednisolone [Medrol Dose 4 mg PO DAILY #21 mg 08/04/16 Pack (21 tabs)] Promethazine HCl/Codeine 5 ml PO HS #80 ml 08/04/16 [Prometh-Codein 6.25-10 mg/5 ml] Naproxen 1 tab PO Q12 PRN #14 tab 05/15/18 diaZEpam [Valium] 5 mg PO Q6 PRN #8 tab 05/15/18 oxyCODONE/Acetaminophen [Percocet 1 ea PO Q6 PRN #12 tab 05/15/18 5/325 mg Tab] Oxycodone HCl [Oxycontin] 30 mg PO TID 09/09/18 Amoxicillin/Clavulanate [Augmentin 1 tab PO BID #10 tab 09/11/18 875 MG-125 MG] Levalbuterol [Xopenex] 0.63 mg INH RQ4 #100 neb 09/11/18 Promethazine DM [Phenergan DM 10 ml PO Q6 PRN #250 ml 09/11/18 Syrup] predniSONE [Prednisone] 10 mg PO DAILY #21 tab 09/11/18 Azithromycin [Zithromax] 250 mg PO DAILY #6 tab 09/29/18 Benzonatate [Tessalon Perle] 100 mg PO Q8 #10 capsule 09/29/18 - Allergies Allergies/Adverse Reactions: Allergies Allergy/AdvReac Type Severity Reaction Status Date / Time No Known Allergies Allergy Verified 09/29/18 13:52 Review of Systems ROS Statement: Except As Marked, All Systems Reviewed And Found Negative Respiratory: Positive for: Cough, Shortness of Breath, Sputum, Wheezing Physical Exam - Reviewed Nursing Documentation Reviewed: Yes Vital Signs Reviewed: Yes - Physical Exam Appears: Positive for: Well, No Acute Distress Head Exam: Positive for: ATRAUMATIC, NORMOCEPHALIC Skin: Positive for: Normal Color, Warm, Dry Cardiovascular/Chest: Positive for: Regular Rate, Rhythm. Negative for: Murmur Respiratory: Positive for: Decreased Breath Sounds, Wheezing (expiratory bilateral), Respiratory Distress (mild) Gastrointestinal/Abdominal: Positive for: Normal Exam, Soft. Negative for: Tenderness Extremity: Positive for: Normal ROM. Negative for: Pedal Edema, Swelling Neurologic/Psych: Positive for: Alert, Oriented (x3) - Laboratory Results Result Diagrams: 09/29/18 15:10 09/29/18 15:10 - Progress Re-evaluation Time: 17:56 Condition: Improved Medical Decision Making Medical Decision Making: Time: 1351 Initial Plan: --EKG --CMP --CBC --Chest x-ray --Duoneb 3 ml IH --SOLU-Medrol 125 mg IVP --Peak flow pre/post treatment --Influenza A B 1608 CXR FINDINGS: LUNGS: No active pulmonary disease. PLEURA: No significant pleural effusion identified. No pneumothorax apparent. CARDIOVASCULAR: No aortic atherosclerotic calcification present. Normal cardiac size. No pulmonary vascular congestion. OSSEOUS STRUCTURES: No significant abnormalities. VISUALIZED UPPER ABDOMEN: Normal. OTHER FINDINGS: None. IMPRESSION: No active disease. Scribe Attestation: Documented by Malaika Deal, acting as a scribe for Shaw Underwood MD. Provider Scribe Attestation: All medical record entries made by the Scribe were at my direction and personally dictated by me. I have reviewed the chart and agree that the record accurately reflects my personal performance of the history, physical exam, medical decision making, and the department course for this patient. I have also personally directed, reviewed, and agree with the discharge instructions and disposition. Disposition - Clinical Impression Clinical Impression: GORAN (obstructive sleep apnea), Asthmatic bronchitis - Patient ED Disposition Is Patient to be Admitted: No Counseled Patient/Family Regarding: Studies Performed, Diagnosis, Need For Followup, Rx Given - Disposition Referrals: Tadeo Celestin, QUINN, MARKETING AND OUTREACH COORDINATOR [Advanced Practice Nurse] - Disposition: Routine/Home Disposition Time: 17:56 Condition: FAIR Prescriptions: Azithromycin [Zithromax] 250 mg PO DAILY #6 tab Benzonatate [Tessalon Perle] 100 mg PO Q8 #10 capsule Instructions: Asthma in Adults, Obstructive Sleep Apnea, Adult (DC) Forms: [facility] ([place])
[2018-09-29] MEDS ORDERED: Albuterol-Ipratrop 3 mg / 0.5 (3 ml) UD ONE ×2 (14:29→16:40)
[2018-09-29 15:28] LABS: BASO # 0.1 K/uL (0.0-0.2); BASO % 0.6 % (0.0-2.0); EOS # 0.3 K/uL (0.0-0.7); EOS % 2.7 % (0.0-4.0); HEMOGLOBIN 14.4 g/dL (12.0-18.0); LYMPH # 1.8 K/uL (1.0-4.3); LYMPH % 17.1 % (20.0-40.0); MEAN CELL VOLUME 93.4 fl (80.0-94.0); MEAN CORPUSCULAR HEMOGLOBIN 31.2 pg (27.0-31.0); MEAN CORPUSCULAR HGB CONC 33.4 g/dL (33.0-37.0); MEAN PLATELET VOLUME 9.2 fl (7.2-11.7); MONO # 0.6 K/uL (0.0-0.8); NEUT # 7.6 K/uL (1.8-7.0); NEUT % 73.6 % (50.0-75.0); NRBC % 0.1 % (0.0-0.0); RBC 4.62 Mil/uL (4.40-5.90); RED CELL DISTRIBUTION WIDTH 14.4 % (11.5-14.5); WHITE BLOOD COUNT 10.3 K/uL (4.8-10.8)
[2018-09-29 15:53] LABS: ALB/GLOB RATIO 1.2 (1.0-2.1); ALBUMIN 4.3 g/dL (3.5-5.0); ALT/SGPT 42 U/L (21-72); AST/SGOT 29 U/L (17-59); BLOOD UREA NITROGEN 20 mg/dl (9-20); CALCIUM 9.2 mg/dL (8.4-10.2); GFR NON-AFRICAN AMERICAN > 60
--- NOTE | 2018-09-29 16:12 | RAD ---
Date of service: 09/29/2018 HISTORY: sob COMPARISON: 09/08/2018 TECHNIQUE: Chest PA and lateral FINDINGS: LUNGS: No active pulmonary disease. PLEURA: No significant pleural effusion identified. No pneumothorax apparent. CARDIOVASCULAR: No aortic atherosclerotic calcification present. Normal cardiac size. No pulmonary vascular congestion. OSSEOUS STRUCTURES: No significant abnormalities. VISUALIZED UPPER ABDOMEN: Normal. OTHER FINDINGS: None. IMPRESSION: No active disease.
[2018-09-29 18:26] VITALS: BP 151/89; PULSE 111; RESP 24; TEMP 98.5; O2SAT 92
--- NOTE | 2018-09-30 21:53 | CARD ---
APPROVED REPORT Date of service: 09/29/2018 EKG Measurement Heart [id number] <Conclusion> Sinus tachycardia Possible Left atrial enlargement Nonspecific T wave abnormality Abnormal ECG
== END 2018-09-29 18:30 | disposition home or self-care (01) ==
LOC: H.ER 13:32
DX: G47.33 Obstructive sleep apnea (adult) (pediatric) (principal); J44.9 Chronic obstructive pulmonary disease, unspecified
CPT/HCPCS: 71046; 80053; 85025; 93005; 94640; 96374; 99285; J2930